=== PATIENT | male | born 1995 | race Two or more races ===

== ENCOUNTER 2025-05-29 19:04 | Inpatient (IN) | payer MEDICAID, OTHER ==
[~2025-05-29] VITALS: Ht 165.1 cm; Wt 70.8 kg
[2025-05-29 19:05] VITALS: TEMP 97
[2025-05-29 19:56] VITALS: BP 122/79; PULSE 119; RESP 22; O2SAT 99
[2025-05-29 20:19] LABS: Mean Corpuscular Hemoglobin 30.9 pg (28.0-32.0)
[2025-05-29 20:20] LABS: Hemoglobin 20.1 g/dL (13.5-17.5); Mean Corpuscular Volume 88.1 fL (80.0-100.0); Nucleated Red Blood Cells % 0.4 %
[2025-05-29 20:21] LABS: Hematocrit 57.3 % (41.0-53.0)
[2025-05-29 20:35] LABS: Potassium 5.1 mmol/L (3.5-5.1); Sodium 138 mmol/L (136-145)
[2025-05-29 20:36] LABS: Anion Gap 8 (5-15)
[2025-05-29 20:41] LABS: BUN/Creatinine Ratio 12.0 (10.0-20.0); Blood Urea Nitrogen 12 mg/dL (9-23)
--- NOTE | 2025-05-29 20:56 | DVH ---
CT HEAD WITHOUT CONTRAST INDICATION: headache EXAM DATE: 05/29/2025 08:29 PM COMPARISON: None RADIATION DOSE: CTDIvol: 58.5 mGy, DLP: 1152.77 mGy*cm PROCEDURE: CT scans of the head were obtained from the vertex to the skull base. Sagittal and coronal reconstructions were provided. All CT scans at this medical facility are performed using dose modulation techniques as appropriate t o a performed exam including the following: Automated exposure control was utilized; adjustment of th e MA and/or KV according to patient size; and use of iterative reconstruction technique. FINDINGS: The cerebral parenchyma appears to be normal configuration and attenuation. The ventricles, cisterns , and sulci appear age-appropriate. There is no evidence for acute territorial infarct, hemorrhage, or mass effect. The orbits are normal. The visualized paranasal sinuses and mastoid air cells are clear. The soft t issues and osseous structures appear within normal limits. IMPRESSION: 1. No acute territorial infarct, intracranial hemorrhage, or mass effect. 2. If clinical symptoms persist, MRI may be beneficial in further evaluation.
--- NOTE | 2025-05-29 21:23 | ED.PDOC ---
HPI (NEURO) HPI Comments 29-year-old male presents to ER with complaints of headache x 4 days. Patient states he's been experiencing frontal headache with associated n/v and intermittent blurred vision x 4 days. He rates his current pain a 9/10 diffuse to forehead without radiation. Denies use of medications for current symptoms and presents to ER ambulatory on arrival, alert and oriented x4, in mild distress. Denies fever, body aches, chills, head injury, night sweats, neck pain, confusion or any further symptoms/complaints Chief Complaint: Headache Time Seen by MD: 19:19 Primary Care Provider: UNKNOWN Reviewed Notes: Nurses Notes, Medications, Allergies Information Source: Patient Mode of Arrival: Ambulatory Past Medical History Past Medical History (Other): Migraines Surgical History: Denies all surgeries Family History Family History: Unknown Social History Smoker: Non-Smoker Alcohol: Denies ETOH Use Drugs: Denies Drug Use Lives In: Home Constitutional: denies: chills, diaphoresis, fatigue, fever, malaise, sweats, weakness, others EENTM: denies: blurred vision, double vision, ear bleeding, ear discharge, ear drainage, ear pain, ear ringing, eye pain, eye redness, hearing loss, mouth pain, mouth swelling, nasal discharge, nose bleeding, nose congestion, nose pain, photophobia, tearing, throat pain, throat swelling, voice changes, others Respiratory: denies: cough, hemoptysis, orthopnea, SOB at rest, shortness of breath, SOB with excertion, stridor, wheezing, others Cardiovascular: denies: chest pain, dizzy spells, diaphoresis, Dyspnea on exertion, edema, irregular heart beat, left arm pain, lightheadedness, palpitations, PND, syncope, others Gastrointestinal: reports: others (As stated in HPI) Genitourinary: denies: burning, dysuria, flank pain, frequency, hematuria, incontinence, penile discharge, penile sore, pain, testicle pain, testicle swelling, urgency, others Neurological: reports: others (As stated in HPI) Musculoskeletal: denies: back pain, gout, joint pain, joint swelling, muscle pain, muscle stiffness, neck pain, others Integumetry: denies: bruises, change in color, change in hair/nails, dryness, laceration, lesions, lumps, rash, wounds, others Allergic/Immunocompromised: denies: Difficulty Healing, Frequent Infections, Hives, Itching, others Hematologic/Lymphatic: denies: anemia, blood clots, easy bleeding, easy bruising, swollen glands, others Endocrine: denies: excessive hunger, excessive sweating, excessive thirst, excessive urination, flushing, intolerance to cold, intolerance to heat, unexplained weight gain, unexplained weight loss, others Psychiatric: denies: anxiety, bipolar disorder, depression, hopeless, panic disorder, schizophrenia, sleepless, suicidal, others Physical Exam General Appearance: Mild Distress HEENT: Normal ENT Inspection, PERRL/EOMI, Pharynx Normal, TMs Normal Neck: Full Range of Motion, Non-Tender, Normal Respiratory: Chest Non-Tender, Lungs Clear, No Accessory Muscle Use, No Respiratory Distress, Normal Breath Sounds Cardiovascular: No Murmur, No Gallop, Regular Rate/Rhythm Breast Exam: Deferred Gastrointestinal: Non Tender, No Pulsatile Mass, Soft Genitalia: Deferred Pelvic: Deferred Rectal: Deferred Extremities: Normal capillary refill, Normal range of motion Neurologic: Alert, staff toxicologist II-XII nml as Tested, No Motor Deficits, No Sensory Deficits Cerebellar Function: Normal Reflexes: Normal Skin: Dry, Normal Color, Warm Peripheral Pulses: 2+ Radial (R), 2+ Radial (L), 2+ Brachial (R), 2+ Brachial (L) Lymphatic: No Adenopathy Was a procedure done? Was a procedure done?: No Sedation Sedation?: No Differential Diagnosis (SZ) Headache: Cluster, Subarachnoid Hemorrhage, Subdural Hemorrhage, Mass Lesion, Meningitis, Other (COVID-19, INFLUENZA) X-Ray, Labs, Meds, VS Vital Signs Date Time Temp Pulse Resp B/P (MAP) Pulse Ox O2 Delivery O2 Flow Rate FiO2 05/29/25 22:22 Room Air* 0 21 05/29/25 19:56 119 22 122/79 (93) 99 05/29/25 19:05 97.0 123 18 116/75 96 97.0 Lab Test 05/29/25 22:46 05/29/25 20:44 05/29/25 20:00 05/29/25 19:51 Range/Units Lactic Acid Level 2.7 *H 2.4 *H 0.4-2.0 mmol/L Influenza Type A Antigen Negative Negative Influenza Type B Antigen Negative Negative SARS-CoV-2 Antigen (Rapid) Negative NEGATIVE White Blood Count 12.2 H 4.4-10.8 10^3/uL Red Blood Count 6.50 H 4.5-5.90 10^6/uL Hemoglobin 20.1 H 13.5-17.5 g/dL Hematocrit 57.3 H 41.0-53.0 % Mean Corpuscular Volume 88.1 80.0-100.0 fL Mean Corpuscular Hemoglobin 30.9 28.0-32.0 pg Mean Corpuscular Hemoglobin Concent 35.0 32.0-36.0 g/dL Red Cell Distribution Width 14.3 11.8-14.3 % Platelet Count 505 H 140-450 10^3/uL Mean Platelet Volume 9.2 6.9-10.8 fL Neutrophils (%) (Auto) 80.4 H 37.0-80.0 % Lymphocytes (%) (Auto) 12.8 10.0-50.0 % Monocytes (%) (Auto) 6.3 0.0-12.0 % Eosinophils (%) (Auto) 0.0 0.0-7.0 % Basophils (%) (Auto) 0.5 0.0-2.0 % Neutrophils # (Auto) 9.8 H 1.6-8.6 10 ^3/uL Lymphocytes # (Auto) 1.6 0.4-5.4 10 ^3/uL Monocytes # (Auto) 0.8 0-1.3 10 ^3/uL Eosinophils # (Auto) 0 0-0.8 10 ^3/uL Basophils # (Auto) 0.1 0-0.2 10 ^3/uL Nucleated Red Blood Cells 0.4 % Sodium Level 138 136-145 mmol/L Potassium Level 5.1 3.5-5.1 mmol/L Chloride Level 98 98-107 mmol/L Carbon Dioxide Level 32 H 20-31 mmol/L Anion Gap 8 5-15 Blood Urea Nitrogen 12 9-23 mg/dL Creatinine 1.00 0.700-1.30 mg/dL Glomerular Filtration Rate Calc 104 >90 mL/min BUN/Creatinine Ratio 12.0 10.0-20.0 Serum Glucose 136 H 74-106 mg/dL Hemoglobin A1c 5.2 <5.7 % A1C Calcium Level 8.0 L 8.7-10.4 mg/dL Phosphorus Level 4.9 2.4-5.1 mg/dL Magnesium Level 2.0 1.6-2.6 mg/dL Total Bilirubin 0.2 0.2-1.0 mg/dL Direct Bilirubin Pending Aspartate Amino Transferase (AST) 34 13-40 U/L Alanine Aminotransferase (ALT) 11 7-40 U/L Alkaline Phosphatase 97 46-116 U/L Total Protein 5.6 L 5.7-8.2 g/dL Albumin 2.7 L 3.2-4.8 g/dL Triglycerides Level Pending Cholesterol Level Pending LDL Cholesterol Pending HDL Cholesterol Pending Lipase 32 12-53 U/L Vitamin B12 Level 301 211-911 pg/mL Vitamin D 25-Hydroxy Pending Thyroid Stimulating Hormone (TSH) Pending Treponema pallidum Antibody Non-reactive Negative Current Medications Medications (Trade) Dose Ordered Sig/Radha Route Start Time Stop Time Status Last Admin Sodium Chloride 1,000 ml @ 1,000 mls/hr Q1H ONCE IV 05/29/25 21:00 05/29/25 21:59 DC 05/29/25 22:11 Ceftriaxone Sodium 50 ml @ 100 mls/hr ONCE ONCE IV 05/29/25 21:00 05/29/25 21:29 DC 05/29/25 22:11 Ondansetron HCl (Zofran Po) 4 mg ONCE ONCE PO 05/29/25 21:00 05/29/25 21:02 DC 05/29/25 22:12 Ketorolac Tromethamine (Toradol Injection) 30 mg ONCE ONCE IV 05/29/25 21:00 05/29/25 21:02 DC 05/29/25 22:12 Sodium Chloride 1,000 ml @ 1,000 mls/hr Q1H ONCE IV 05/29/25 21:45 05/29/25 22:44 DC 05/29/25 22:41 PATIENT: ARSENIO OCHOAACCT: [id number]: [id number] : 1995 LOC: ER ROOM / BED: / AGE / SEX: 29 / M ADM STATUS: REG ER SERVICE 19 ORDERING PHYSICIAN: CABRERA JENKINS PROCEDURE(s): HWOCT - HEAD WITHOUT CONTRAST REASON: headache ORDER NUMBER(s): [id number], ACCESSION NUMBER(s): [id number] CT HEAD WITHOUT CONTRAST INDICATION: headache EXAM DATE: 05/29/2025 08:29 PM COMPARISON: None RADIATION DOSE: CTDIvol: 58.5 mGy, DLP: 1152.77 mGy*cm PROCEDURE: CT scans of the head were obtained from the vertex to the skull base. Sagittal and coronal reconstructions were provided. All CT scans at this medical facility are performed using dose modulation techniques as appropriate to a performed exam including the following: Automated exposure control was utilized; adjustment of the MA and/or KV according to patient size; and use of iterative reconstruction technique. FINDINGS: The cerebral parenchyma appears to be normal configuration and attenuation. The ventricles, cisterns, and sulci appear age-appropriate. There is no evidence for acute territorial infarct, hemorrhage, or mass effect. The orbits are normal. The visualized paranasal sinuses and mastoid air cells are clear. The soft tissues and osseous structures appear within normal limits. IMPRESSION: 1. No acute territorial infarct, intracranial hemorrhage, or mass effect. 2. If clinical symptoms persist, MRI may be beneficial in further evaluation. ATED BY: LUZ MILLS MD DICTATED DATE/TIME: 05/29/252053 SIGNED BY: LUZ MILLS MD SIGNED DATE/TIME: 05/29/252053 CC: CBC reviewed - WBC 12.2, hemoglobin 20.1, hematocrit 57.3, platelets 505 BMP reviewed without any significant abnormalities Lactic acid reviewed- 2.4 Blood cultures ordered Swab results reviewed - negative Urinalysis ordered CT head without contrast reviewed Hep-lock IV ordered NS 1 liter IV ordered NS 1 liter IV ordered Rocephin 1 g IV ordered Toradol 30 mg IV ordered Zofran 4 mg p.o. ordered Zofran 4 mg IV ordered Patient admitted to hospitalist for symptomatic polycythemia and need for pain control Images Reviewed?: Images reviewed and evaluated by me Time of 1ST Reevaluation: 20:54 Reevaluation 1ST: N/A Patient Education/Counseling: Diagnosis, Treatment, Prognosis, Need For Follow Up Family Education/Counseling: No Family Present Departure 1 Departure Time of Disposition: 21:12 Impression: Primary Impression: Polycythemia Additional Impressions: Leukocytosis Qualified Codes: D72.829 - Elevated white blood cell count, unspecified Thrombocytosis Intractable headache Qualified Codes: R51.9 - Headache, unspecified Lactic acidosis Disposition: 09 ADMITTED INPATIENT Condition: Stable Critical Care Note Critical Care Time?: No Stability Stability form required: No Heart Score Heart Score: Heart Score Response (Comments) Value History N/A 0 EKG N/A 0 Age N/A 0 Risk Factors N/A 0 Troponin N/A 0 Total 0 CABRERA JENKINS May 29, 2025 21:23
[2025-05-29 21:27] LABS: Calcium 8.0 mg/dL (8.7-10.4); Carbon Dioxide 32 mmol/L (20-31); Chloride 98 mmol/L (98-107); Glucose 136 mg/dL (74-106)
[2025-05-29 21:31] LABS: COVID19 ANTIGEN SOFIA FIA NEGATIVE (NEGATIVE)
[2025-05-29 21:38] LABS: Lactic Acid w/Reflex 2.4 mmol/L (0.4-2.0)
[2025-05-29] MEDS: SODIUM CHLORIDE 0.9% 1,000 ML IV ONE ×2 (22:11→22:41)
[2025-05-29] MEDS: ONDANSETRON ODT 4 MG TAB PO ONE (22:12)
[2025-05-29] MEDS: KETOROLAC TROMETH 30 MG/ML 1ML VIAL IV ONE (22:12)
[2025-05-29] MEDS ORDERED: ACETAMINOPHEN 325 MG TAB PO PRN (23:00)
[2025-05-29] MEDS ORDERED: MORPHINE SULFATE INJ 2 MG/ml SYRG IV PRN (23:00)
[2025-05-29] MEDS ORDERED: ONDANSETRON HCL 4 MG/2 ML VIAL IV PRN (23:00)
--- NOTE | 2025-05-29 23:02 | DVHHPRES ---
History of Present Illness Resident Creating Document: ED FERNANDEZ RESIDENT History of Present Illness Beck Telles is a 29-year-old male patient who presents to ED with chief complaint of frontal constant headache which started four days before his admission, intensity 10/10, associated with nausea and vomiting with yellow emesis, also associated with photophobia, sensory to high-pitched voices, chills and fevers. Patient describes presenting this similar pain with previous diagnosis of migraine attack. 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 Occasionally consumes marijuana. Denies current tobacco, alcohol and other drug abuse Allergies: Denies Home medication: Prednisone Patient seen and examined in ED lobby. Still complains of vomiting and migraine. Patient was admitted for further evaluation. Past Medical History Per HPI Past Surgical History Per HPI Family History Per HPI Past Social History Per HPI Review of Systems Review of Systems Per HPI Allergies: Coded Allergies: NO KNOWN ALLERGIES (Unverified , 05/29/25) Exam Vital Signs Vital Signs Date Time Temp Pulse Resp B/P (MAP) Pulse Ox O2 Delivery O2 Flow Rate FiO2 05/29/25 22:22 Room Air* 0 21 05/29/25 19:56 119 22 122/79 (93) 99 05/29/25 19:05 97.0 97.0 Exam Patient lying in bed, in moderate acute distress General: Lucid, afebrile, mucosae are dry, presented one episode of vomiting. Presented mild stiffness in neck, Burdzinski sign negative Cardiovascular: Normal S1 and S2. No murmurs, gallops or rubs Respiratory: Normal ventilation mechanics. Clear lung sounds on auscultation Abdomen: Soft, nontender, no organomegaly, normal bowel sounds MSK/skin: Mobilizes 4 limbs. Skin is dry and warm Neurological: Oriented in 3 spheres. No motor no sensitive deficits. Pupils are isocoric and reactive Labs/Xrays Labs Test 05/29/25 22:46 05/29/25 20:00 05/29/25 19:51 Range/Units Influenza Type A Antigen Negative Negative Influenza Type B Antigen Negative Negative SARS-CoV-2 Antigen (Rapid) Negative NEGATIVE White Blood Count 12.2 H 4.4-10.8 10^3/uL Red Blood Count 6.50 H 4.5-5.90 10^6/uL Hemoglobin 20.1 H 13.5-17.5 g/dL Hematocrit 57.3 H 41.0-53.0 % Mean Corpuscular Volume 88.1 80.0-100.0 fL Mean Corpuscular Hemoglobin 30.9 28.0-32.0 pg Mean Corpuscular Hemoglobin Concent 35.0 32.0-36.0 g/dL Red Cell Distribution Width 14.3 11.8-14.3 % Platelet Count 505 H 140-450 10^3/uL Mean Platelet Volume 9.2 6.9-10.8 fL Neutrophils (%) (Auto) 80.4 H 37.0-80.0 % Lymphocytes (%) (Auto) 12.8 10.0-50.0 % Monocytes (%) (Auto) 6.3 0.0-12.0 % Eosinophils (%) (Auto) 0.0 0.0-7.0 % Basophils (%) (Auto) 0.5 0.0-2.0 % Neutrophils # (Auto) 9.8 H 1.6-8.6 10 ^3/uL Lymphocytes # (Auto) 1.6 0.4-5.4 10 ^3/uL Monocytes # (Auto) 0.8 0-1.3 10 ^3/uL Eosinophils # (Auto) 0 0-0.8 10 ^3/uL Basophils # (Auto) 0.1 0-0.2 10 ^3/uL Nucleated Red Blood Cells 0.4 % Sodium Level 138 136-145 mmol/L Potassium Level 5.1 3.5-5.1 mmol/L Chloride Level 98 98-107 mmol/L Carbon Dioxide Level 32 H 20-31 mmol/L Anion Gap 8 5-15 Blood Urea Nitrogen 12 9-23 mg/dL Creatinine 1.00 0.700-1.30 mg/dL Glomerular Filtration Rate Calc 104 >90 mL/min BUN/Creatinine Ratio 12.0 10.0-20.0 Serum Glucose 136 H 74-106 mg/dL Calcium Level 8.0 L 8.7-10.4 mg/dL SEPSIS Sepsis Screen Date sepsis recognized/suspect: May 29, 2025 Time Sepsis recognized/suspect: 1907 Recent Procedure: No On Antibiotic Therapy: No Respiratory Rate >20: Yes Heart Rate >90: Yes Temp<36 C (96.8 F) or >38.3 C: No SBP <90 or MAP <65 mmHG: No New Acute Mental Status Change: No Is the patient on CPAP, BIPAP,: No Physician Orders Head Without Contrast (05/29/25 19:20) Blood Culture (05/29/25 20:29) Urinalysis (05/29/25 20:35) Heplock Iv (05/29/25 ) Drug Screen (05/29/25 21:10) Ct Ab Pel Wo Con-No Oral Or Iv (05/29/25 22:45) Admit (05/29/25 22:59) Code Status (05/29/25 22:59) Acetaminophen Tablet (Tylenol Tablet) (05/29/25 23:00) Ondansetron Hcl (Zofran) (05/29/25 23:00) Complete Blood Count (05/30/25 04:00) Comprehensive Metabolic Panel (05/30/25 04:00) Npo (Nothing By Mouth) Diet (05/30/25 Breakfast) Morphine Sulfate Injection (05/29/25 23:00) Lovenox 40mg (05/30/25 10:00) Oxygen By Nasal Cannula (05/29/25 22:59) Stat Ekg For Chest Pain (05/29/25 22:59) Notify Md Of Changes From Base (05/29/25 22:59) Solar Site Assessment Specialist For 24 Hours (05/29/25 22:59) Emergency Dysrhythmia Protocol (05/29/25 22:59) Rhythm Strips Once Every Shift (05/29/25 22:59) Vital Signs Date Time Temp Pulse Resp B/P (MAP) Pulse Ox O2 Delivery O2 Flow Rate FiO2 05/29/25 22:22 Room Air* 0 21 05/29/25 19:56 119 22 122/79 (93) 99 05/29/25 19:05 97.0 123 18 116/75 96 97.0 Laboratory Tests Test 05/29/25 19:51 05/29/25 20:44 05/29/25 22:46 White Blood Count 12.2 10^3/uL (4.4-10.8) H Lactic Acid Level 2.4 mmol/L (0.4-2.0) *H Pending Medications Medications Dose Ordered Sig/Radha Route Start Time Stop Time Status Last Admin Dose Admin Ceftriaxone Sodium 50 ml @ 100 mls/hr ONCE ONCE IV 05/29/25 21:00 05/29/25 21:29 DC 05/29/25 22:11 100 MLS/HR Ketorolac Tromethamine 30 mg ONCE ONCE IV 05/29/25 21:00 05/29/25 21:02 DC 05/29/25 22:12 30 MG Ondansetron HCl 4 mg ONCE ONCE PO 05/29/25 21:00 05/29/25 21:02 DC 05/29/25 22:12 4 MG Sodium Chloride 1,000 ml @ 1,000 mls/hr Q1H ONCE IV 05/29/25 21:00 05/29/25 21:59 DC 05/29/25 22:11 1,000 MLS/HR Sodium Chloride 1,000 ml @ 1,000 mls/hr Q1H ONCE IV 05/29/25 21:45 05/29/25 22:44 DC 05/29/25 22:41 1,000 MLS/HR Assessment/Plan Assessment/Plan ASSESSMENT Sepsis probably secondary to gastroenteritis versus meningitis Gastroenteritis Rule out meningitis Intractable vomiting Acute migraine attack Polycythemia - probably secondary to hemoconcentration due to intractable vomiti ng Hyperlacticacidemia 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 Indicated NPO, IV fluids, empiric IV antibiotics (ceftriaxone and metronidazole) Ordered lee cultures (blood, urine stool and sputum) Indicated subcutaneous Triptan Discussed with patient completing lumbar puncture to rule out meningitis, patient agrees. He denies any close sick contacts, but patient is immunosuppressed due to minimal change chronic kidney disease requiring prednisone Admitted to telemetry for further evaluation Goals of care discussed with patient for over 18 minutes: Full code status Discussed plan with Dr. Robison, patient and nurses: Patient was admitted to telemetry due to sepsis probably secondary to gastroenteritis, ruling out meningitis. Ordered complementary workup, pending results. Patient has poor prognosis Plan discussed with: Patient, Other (Nurses) My Orders Orders - ED FERNANDEZ RESIDENT Procedure Category Date Status Time Admit ADMIT 05/29/25 Verified 22:59 Code Status CODE 05/29/25 Verified 22:59 Acetaminophen Tablet [facility] 05/29/25 Verified (Tylenol Tablet) 23:00 Ondansetron Hcl [facility] 05/29/25 Verified (Zofran) 23:00 Complete Blood Count LAB 05/30/25 Verified 04:00 Comprehensive LAB 05/30/25 Verified Metabolic Panel 04:00 Npo (Nothing By DIET 05/30/25 Verified Mouth) Diet Breakfast Morphine Sulfate [facility] 05/29/25 Verified Injection 23:00 Lovenox 40mg [facility] 05/30/25 Verified 10:00 Oxygen By Nasal RT 05/29/25 Verified Cannula 22:59 Stat Ekg For Chest [facility] 05/29/25 Verified Pain 22:59 Notify Md Of Changes [facility] 05/29/25 Verified From Base 22:59 Solar Site Assessment Specialist For [facility] 05/29/25 Verified 24 Hours 22:59 Emergency Dysrhythmia [facility] 05/29/25 Verified Protocol 22:59 Rhythm Strips Once [facility] 05/29/25 Verified Every Shift 22:59 Date of Service: May 29, 2025 Billing Provider: TRAVIS PERES MD Common Visit Codes: 23953-[id number] INP/OBS CARE (HIGH) Secondary Visit Codes: 60659-[id number] CARE PLAN 30 MINUTES ED FERNANDEZ RESIDENT May 29, 2025 23:02
--- NOTE | 2025-05-29 23:24 | DVH ---
Exam: CT CT AB PEL WO CON-NO ORAL OR IV History: abdominal pain Comparison Study: None TECHNIQUE: Multidetector CT of the abdomen and pelvis was performed from lung bases to pubic symphysi s. Imaging was performed without IV contrast. Axial, coronal, and sagittal multiplanar reformats were obtained from the axial data set by the technologist. RADIATION DOSE: CTDI vol 5.34 mGy. DLP 297.08 mGy.cm Findings: Limited evaluation of the solid organs in the absence of IV contrast. Evaluation is degraded by motio n and streak artifact. Lungs: The lung bases are clear. Liver: Unremarkable. Spleen: Unremarkable. Pancreas: Unremarkable. Gallbladder: Unremarkable. Adrenals: Unremarkable Kidneys: Unremarkable. Pelvic Viscera: Unremarkable. Vasculature: Unremarkable. Retroperitoneum: Unremarkable. Bowel: No bowel obstruction. There is submucosal fat deposition within the ascending colon and termin al ileum which may reflect chronic inflammation. Musculoskeletal: Unremarkable. Soft tissues: Unremarkable Impression: 1. No acute abdominopelvic abnormality.
[2025-05-29] MEDS ORDERED: METOCLOPRAMIDE HCL 5MG/ml INJ 2ml VIAL IV PRN (23:45)
[2025-05-29] MEDS ORDERED: SUMAtriptan SUCCINATE 6 MG/0.5 ML VL SC PRN (23:45)
[2025-05-30] MEDS: ONDANSETRON HCL 4 MG/2 ML VIAL IV ONE (00:24)
[2025-05-30 00:25] LABS: Alanine Aminotransferase 11 U/L (7-40); Alkaline Phosphatase 97 U/L (46-116); Lipase 32 U/L (12-53); Magnesium 2.0 mg/dL (1.6-2.6)
[2025-05-30] MEDS: SUMAtriptan SUCCINATE 6 MG/0.5 ML VL SC ONE (00:28)
[2025-05-30] MEDS: METOCLOPRAMIDE HCL 5MG/ml INJ 2ml VIAL IV ONE (00:29)
[2025-05-30 00:33] LABS: Albumin 2.7 g/dL (3.2-4.8); Bilirubin, Total 0.2 mg/dL (0.2-1.0); Total Protein 5.6 g/dL (5.7-8.2)
[2025-05-30 03:42] LABS: Bilirubin, Direct < 0.1 mg/dL (<0.3); Cholesterol 546 mg/dL (< 200); HDL Cholesterol 68 mg/dL (40-59); Triglycerides 411 mg/dL (< 150)
--- NOTE | 2025-05-30 09:19 | DVHDSRES ---
Discharge Summary Date of Admission Resident Creating Document: ED FERNANDEZ RESIDENT May 29, 2025 at 22:59 Date of Discharge: May 30, 2025 Labs/Diagnostic Data: Laboratory Results Test 05/29/25 22:46 05/29/25 20:00 05/29/25 19:51 Lactic Acid Level 2.7 mmol/L (0.4-2.0) Influenza Type A Antigen Negative (Negative) Influenza Type B Antigen Negative (Negative) SARS-CoV-2 Antigen (Rapid) Negative (NEGATIVE) White Blood Count 12.2 10^3/uL (4.4-10.8) Red Blood Count 6.50 10^6/uL (4.5-5.90) Hemoglobin 20.1 g/dL (13.5-17.5) Hematocrit 57.3 % (41.0-53.0) Mean Corpuscular Volume 88.1 fL (80.0-100.0) Mean Corpuscular Hemoglobin 30.9 pg (28.0-32.0) Mean Corpuscular Hemoglobin Concent 35.0 g/dL (32.0-36.0) Red Cell Distribution Width 14.3 % (11.8-14.3) Platelet Count 505 10^3/uL (140-450) Mean Platelet Volume 9.2 fL (6.9-10.8) Neutrophils (%) (Auto) 80.4 % (37.0-80.0) Lymphocytes (%) (Auto) 12.8 % (10.0-50.0) Monocytes (%) (Auto) 6.3 % (0.0-12.0) Eosinophils (%) (Auto) 0.0 % (0.0-7.0) Basophils (%) (Auto) 0.5 % (0.0-2.0) Neutrophils # (Auto) 9.8 10 ^3/uL (1.6-8.6) Lymphocytes # (Auto) 1.6 10 ^3/uL (0.4-5.4) Monocytes # (Auto) 0.8 10 ^3/uL (0-1.3) Eosinophils # (Auto) 0 10 ^3/uL (0-0.8) Basophils # (Auto) 0.1 10 ^3/uL (0-0.2) Nucleated Red Blood Cells 0.4 % Sodium Level 138 mmol/L (136-145) Potassium Level 5.1 mmol/L (3.5-5.1) Chloride Level 98 mmol/L (98-107) Carbon Dioxide Level 32 mmol/L (20-31) Anion Gap 8 (5-15) Blood Urea Nitrogen 12 mg/dL (9-23) Creatinine 1.00 mg/dL (0.700-1.30) Glomerular Filtration Rate Calc 104 mL/min (>90) BUN/Creatinine Ratio 12.0 (10.0-20.0) Serum Glucose 136 mg/dL (74-106) Hemoglobin A1c 5.2 % A1C (<5.7) Calcium Level 8.0 mg/dL (8.7-10.4) Phosphorus Level 4.9 mg/dL (2.4-5.1) Magnesium Level 2.0 mg/dL (1.6-2.6) Total Bilirubin 0.2 mg/dL (0.2-1.0) Direct Bilirubin < 0.1 mg/dL (<0.3) Aspartate Amino Transferase (AST) 34 U/L (13-40) Alanine Aminotransferase (ALT) 11 U/L (7-40) Alkaline Phosphatase 97 U/L (46-116) Total Protein 5.6 g/dL (5.7-8.2) Albumin 2.7 g/dL (3.2-4.8) Triglycerides Level 411 mg/dL (< 150) Cholesterol Level 546 mg/dL (< 200) LDL Cholesterol mg/dL (< 100) HDL Cholesterol 68 mg/dL (40-59) Lipase 32 U/L (12-53) Vitamin B12 Level 301 pg/mL (211-911) Vitamin D 25-Hydroxy 8.8 ng/mL (30.0-100) Thyroid Stimulating Hormone (TSH) 4.71 uIU/mL (0.55-4.78) Treponema pallidum Antibody Non-reactive (Negative) Other Laboratory Tests 05/29/25 19:51 Brief Hx & Hospital Course: Beck Telles is a 29-year-old male patient who presents to ED with chief complaint of frontal constant headache which started four days before his admission, intensity 10/10, associated with nausea and vomiting with yellow emesis, also associated with photophobia, sensory to high-pitched voices, chills and fevers. Patient describes presenting this similar pain with previous diagnosis of migraine attack. 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 Occasionally consumes marijuana. Denies current tobacco, alcohol and other drug abuse Allergies: Denies Home medication: Prednisone Brief hospital course: Sepsis probably secondary to gastroenteritis versus meningitis associated with acute migraine attack symptomatic by frontal headaches, nausea and vomiting, requiring on admission NPO, IV fluids, empiric IV antibiotic (ceftriaxone and metronidazole). Completed head CT and abdomen CT which showed no acute findings. Ordered panculture (blood, urine, stool and sputum) and discussed completion of lumbar spine type. Indicated subcutaneous Triptan. Patient was admitted to telemetry for further evaluation. Patient lucid, oriented in all spheres, capable of making his own decisions, decides to leave against medical advice before completing complementary workup. Have discussed consequences of doing so which include worsening sepsis, metabolic encephalopathy and . Patient takes full responsibility of his actions, and decides to leave against medical advice. 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 Robison, patient and nurses Operations or Procedures CT HEAD WITHOUT CONTRAST INDICATION: headache EXAM DATE: 05/29/2025 08:29 PM COMPARISON: None RADIATION DOSE: CTDIvol: 58.5 mGy, DLP: 1152.77 mGy*cm PROCEDURE: CT scans of the head were obtained from the vertex to the skull base. Sagittal and coronal reconstructions were provided. All CT scans at this medical facility are performed using dose modulation techniques as appropriate to a performed exam including the following: Automated exposure control was utilized; adjustment of the MA and/or KV according to patient size; and use of iterative reconstruction technique. FINDINGS: The cerebral parenchyma appears to be normal configuration and attenuation. The ventricles, cisterns, and sulci appear age-appropriate. There is no evidence for acute territorial infarct, hemorrhage, or mass effect. The orbits are normal. The visualized paranasal sinuses and mastoid air cells are clear. The soft tissues and osseous structures appear within normal limits. IMPRESSION: 1. No acute territorial infarct, intracranial hemorrhage, or mass effect. 2. If clinical symptoms persist, MRI may be beneficial in further evaluation. ATED BY: LUZ CARREON MD DICTATED DATE/TIME: 05/29/252053 Exam: CT CT AB PEL WO CON-NO ORAL OR IV History: abdominal pain Comparison Study: None TECHNIQUE: Multidetector CT of the abdomen and pelvis was performed from lung bases to pubic symphysis. Imaging was performed without IV contrast. Axial, coronal, and sagittal multiplanar reformats were obtained from the axial data set by the technologist. RADIATION DOSE: CTDI vol 5.34 mGy. DLP 297.08 mGy.cm Findings: Limited evaluation of the solid organs in the absence of IV contrast. Evaluation is degraded by motion and streak artifact. Lungs: The lung bases are clear. Liver: Unremarkable. Spleen: Unremarkable. Pancreas: Unremarkable. Gallbladder: Unremarkable. Adrenals: Unremarkable Kidneys: Unremarkable. Pelvic Viscera: Unremarkable. Vasculature: Unremarkable. Retroperitoneum: Unremarkable. Bowel: No bowel obstruction. There is submucosal fat deposition within the ascending colon and terminal ileum which may reflect chronic inflammation. Musculoskeletal: Unremarkable. Soft tissues: Unremarkable Impression: 1. No acute abdominopelvic abnormality. 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 Patient was counseled about treatment plan, medications, possible side effects, patientverbalized understanding. All questions were answered to the best of my ability. This discharge took greater then 30 minutes in planning, reviewing documentation, counseling the patient, and discussing with other team members." ASSESSMENT ASSESSMENT Assessment ED FERNANDEZ RESIDENT May 30, 2025 09:19
[2025-05-30] MEDS ORDERED: ENOXAPARIN SOD 40 MG/0.4 ML SYRINGE SC SCH (10:00)
[2025-05-30] MEDS ORDERED: methylPREDNISolone SOD SUCC 40 MG/ML VL IV SCH (10:00)
== END 2025-05-30 00:54 | disposition left against medical advice (07) | DRG 720 ==
LOC: ER 19:04 → OVERFLOW 22:59
PROVIDERS: ADMIT Student in an Organized Health Care Education/Training Program; ATTEND Physician Assistant
DX: A41.9 Sepsis, unspecified organism (principal); E87.20 Acidosis, unspecified; G03.9 Meningitis, unspecified; A09 Infectious gastroenteritis and colitis, unspecified; Z53.29 Procedure and treatment not carried out because of patient's decision for other reasons; Z20.822 Contact with and (suspected) exposure to COVID-19; G43.909 Migraine, unspecified, not intractable, without status migrainosus; D75.1 Secondary polycythemia; N18.9 Chronic kidney disease, unspecified; D75.839 Thrombocytosis, unspecified; E55.9 Vitamin D deficiency, unspecified; E78.5 Hyperlipidemia, unspecified; Z79.899 Other long term (current) drug therapy; R11.16 Cannabis hyperemesis syndrome
CPT/HCPCS: 36415; 36600; 70450; 74176; 80048; 80061; 80076; 82306; 82607; 82805; 83036; 83605; 83690; 83735; 84100; 84443; 85025; 86780; 87040; 87426; 87804; 96365; 96375; G0378; J1885; Q0162